=== PATIENT | female | born 1990 | race Asian ===

== ENCOUNTER → 2016-08-13 | Outpatient (CLI) | payer OTHER ==
[~2016-08-13] MED LIST: MTR600X PO; OXYC-57 PO; PRENTAB26 PO
[2016-08-13 18:49] LABS: URINE APPEARANCE TURBID (CLEAR); URINE BILIRUBIN NEG (NEG); URINE COLOR YELLOW; URINE NITRITE NEG (NEG); URINE SPECIFIC GRAVITY 1.017 (1.000-1.030); UROBILINOGEN NEG (NEG)
[2016-08-13 19:00] LABS: MANUAL MICROSCOPIC REQUIRED? NO; REVIEW REQ? NO
== END | disposition home or self-care (01) ==
LOC: C.LABSPEC 17:54
PROVIDERS: ATTEND Obstetrics & Gynecology
DX: O34.219 Maternal care for unspecified type scar from previous cesarean delivery (principal)

== ENCOUNTER → 2016-08-14 | Outpatient (CLI) | payer OTHER ==
[2016-08-14 11:08] LABS: COMPLETE YES; EOS % 0.5 %; HEMATOCRIT 37.8 % (37-47); IG% 0.2 %; LYMPH % 8.3 %; LYMPH ABS # 0.53 K/uL (1.2-3.4); MEAN CELL VOLUME 85.9 fL (80-100); MEAN CORPUSCULAR HGB CONC 34.9 g/dl (32-36); MEAN PLATELET VOLUME 9.3 fL (7.4-10.4); PLATELET COUNT 211 K/uL (130-400); WHITE BLOOD COUNT 6.39 K/uL (4.8-10.8)
[2016-08-16 14:54] LABS: CHLAMYDIA TRACH RNA*** NOT DETECTED (NOT DETECTED); GC (NEIS GONORRHOEAE)RNA** NOT DETECTED (NOT DETECTED)
== END | disposition home or self-care (01) ==
LOC: C.LAB1850 09:31
PROVIDERS: ATTEND Obstetrics & Gynecology
DX: O34.219 Maternal care for unspecified type scar from previous cesarean delivery (principal)

== ENCOUNTER → 2016-08-14 | Outpatient (CLI) | payer OTHER | END | disposition home or self-care (01) | LOC: C.PAPS 11:23 | PROVIDERS: ATTEND Obstetrics & Gynecology | DX: Z12.4 Encounter for screening for malignant neoplasm of cervix (principal) ==

== ENCOUNTER → 2016-10-12 | Outpatient (CLI) | payer OTHER ==
[2016-10-12 18:30] LABS: GTGD 50 Grams
== END | disposition home or self-care (01) ==
LOC: C.LAB1850 15:38
PROVIDERS: ATTEND Obstetrics & Gynecology
DX: Z34.92 Encounter for supervision of normal pregnancy, unspecified, second trimester (principal)

== ENCOUNTER 2016-11-24 23:48 | Outpatient (CLI) | payer OTHER ==
[~2016-11-24] VITALS: Ht 157.5 cm; Wt 53.1 kg
[2016-11-25] MEDS ORDERED: PRENTAB26 PO (00:07)
[2016-11-25 00:08] VITALS: Ht 157.5 cm; Wt 53.1 kg
--- NOTE | 2016-11-27 07:28 | EDITING REQUIRED CODING QUERY ---
DIAGNOSIS NEEDED To promote full compliance with coding requirements relating to patient care, physician participation is requested in all cases of newspaper photo editor uncertainty. Please assist us with the question(s) below: Coding Question: The patient received care in labor and delivery on 11/25/16 as noted within the record. Please document the diagnosis that is being addressed by the medication/treatment. Provider Response: DIAGNOSIS: Abdominal pain. Thank you for your assistance, Angelic Chow - Implementation Architect
== END 2016-11-25 00:25 | disposition home or self-care (01) ==
LOC: C.OPB 23:48 → C.LD 23:48 → C.OPB 11-25 00:25
PROVIDERS: ATTEND Obstetrics & Gynecology
DX: O99.89 Other specified diseases and conditions complicating pregnancy, childbirth and the puerperium (principal); R10.9 Unspecified abdominal pain; Z3A.25 25 weeks gestation of pregnancy

== ENCOUNTER → 2016-12-06 | Outpatient (CLI) | payer OTHER ==
[2016-12-06 13:05] LABS: GTGD 50 Grams
[2016-12-06 14:03] LABS: URINE APPEARANCE CLOUDY (CLEAR); URINE BILIRUBIN NEG (NEG); URINE COLOR DK YELLOW; URINE EPITHELIAL CELL AUTO >30 /lpf (0-5); URINE NITRITE NEG (NEG); URINE PH 6.5 (4.5-7.5); URINE SPECIFIC GRAVITY 1.024 (1.000-1.030); UROBILINOGEN NEG (NEG)
[2016-12-06 14:08] LABS: MANUAL MICROSCOPIC REQUIRED? NO; REVIEW REQ? NO
== END | disposition home or self-care (01) ==
LOC: C.LAB1850 10:02
PROVIDERS: ATTEND Obstetrics & Gynecology
DX: Z34.92 Encounter for supervision of normal pregnancy, unspecified, second trimester (principal)

== ENCOUNTER → 2017-02-07 | Outpatient (CLI) | payer OTHER | END | disposition home or self-care (01) | LOC: C.LABSPEC 17:33 | PROVIDERS: ATTEND Obstetrics & Gynecology | DX: Z34.83 Encounter for supervision of other normal pregnancy, third trimester (principal) ==

== ENCOUNTER 2017-03-07 07:30 | Inpatient (IN) | payer OTHER ==
--- NOTE | 2017-03-06 11:41 | PAT Medication Instructions ---
Service Date Mar 06, 2017. Current Home Medication List Multivit/Min/Iron/Fol Ac/Pren ( Vitamin), 1 TAB PO QPM Medication Instructions For Your Scheduled Surgery - Take the following medications as scheduled the night before surgery: Multivit/Min/Iron/Fol Ac/Pren ( Vitamin), 1 TAB PO QPM If you have any questions please call us at [phone] or [phone] or [phone]
[2017-03-06 12:00] LABS: COMPLETE YES; EOS % 0.5 %; HEMATOCRIT 39.9 % (37-47); IG% 0.6 %; LYMPH % 19.4 %; LYMPH ABS # 1.26 K/uL (1.2-3.4); MEAN CELL VOLUME 89.5 fL (80-100); MEAN CORPUSCULAR HEMOGLOBIN 30.3 pg (25-34); MEAN CORPUSCULAR HGB CONC 33.8 g/dl (32-36); MONO % 7.8 %; NEUT % 71.7 %; PLATELET COUNT 175 K/uL (130-400); RED BLOOD COUNT 4.46 M/uL (4.2-5.4); WHITE BLOOD COUNT 6.51 K/uL (4.8-10.8)
[~2017-03-07] VITALS: Ht 157.5 cm; Wt 66.0 kg
[~2017-03-07 07:30] MED LIST changes: -MTR600X PO; -OXYC-57 PO
--- NOTE | 2017-03-08 17:10 | HISTORY & PHYSICAL EXAMINATION ---
DATE OF ADMISSION: 03/11/2017 ADMIT DIAGNOSES: 1. Intrauterine at 40+ weeks. 2. History of previous section. HISTORY OF PRESENT ILLNESS: Aparna Mack is a 2, para 1-0-0-1 with an EDC of 03/06/2017 based on a last menstrual period consistent with a first trimester ultrasound, who presents for repeat section. She had hoped to , but did not labor. Her first was a section for failure to progress in [place] at 41 weeks to deliver a 7-pound baby. The for this patient has been uncomplicated. She notes good movement, no significant contractions, leaking or vaginal bleeding. PAST OB AND GARAGE DOOR INSTALLER HISTORY: As noted above. She denies history of abnormal Pap smears or sexually transmitted diseases. ALLERGIES: No known drug allergies. MEDICATIONS: vitamin. PAST MEDICAL HISTORY: Significant for mild asthma, for which she takes no medication. She has a history of migraine. She denies hypertension, heart disease, heart murmur, diabetes, kidney or liver problems. PAST SURGICAL HISTORY: Includes . SOCIAL HISTORY: The patient denies tobacco, alcohol or drug use. She lives with her spouse and daughter and in-laws. PHYSICAL EXAMINATION: GENERAL: This is a well-developed and well-nourished white female in no acute distress. VITAL SIGNS: Blood pressure 96/50. Weight 147.2 pounds. NECK: Supple without thyromegaly or lymphadenopathy. CHEST: Clear to auscultation bilaterally. CARDIOVASCULAR: Regular rate and rhythm without murmurs, gallops or rubs. BACK: Without costovertebral angle tenderness. EXTREMITIES: Benign. PELVIC: Deferred. LABORATORY DATA: Blood type O positive, antibody negative, rubella immune, RPR nonreactive, HIV negative, hepatitis B negative, chlamydia and gonorrhea cultures negative, Glucola x2 negative, and GBS negative. ASSESSMENT: Aparna Mack is a 2, para 1-0-0-1 at 40+weeks, who presents for repeat section. The risks of the procedure were discussed with the patient including the risks of anesthesia, bleeding requiring transfusion, infection and poor wound healing, damage to surrounding structures including bowel, bladder, vessels, nerves and ureters with need for further surgery, hospitalization or intervention. The other risks of surgery including heart attack, blood clot, stroke and were discussed with the patient. Consent was reviewed and signed. Surgery is planned for March 11. MTDD
[2017-03-11] VITALS (13 sets, daily range): BP systolic 104–117; BP diastolic 64–74; PULSE 83–94; TEMP 36.5–36.9; O2SAT 96–98; Ht 157.5 cm; Wt 66.0 kg
[2017-03-11] MEDS ORDERED: CITRIC ACID/SODIUM CITRATE 15 ML UDC PO ONE (05:30)
[2017-03-11] MEDS: LACTATED RINGER'S 1000ML 1,000 ML IV SCH ×2 (05:47→06:55)
[2017-03-11 05:50] LABS: BASO % 0.1 %; BASO ABS # 0.01 K/uL (0-0.2); COMPLETE YES; EOS % 0.3 %; HEMATOCRIT 38.2 % (37-47); IG% 0.4 %; LYMPH % 20.9 %; LYMPH ABS # 1.48 K/uL (1.2-3.4); MEAN CELL VOLUME 88.8 fL (80-100); MEAN CORPUSCULAR HGB CONC 33.8 g/dl (32-36); MEAN PLATELET VOLUME 9.3 fL (7.4-10.4); MONO % 6.5 %; NEUT % 71.8 %; PLATELET COUNT 172 K/uL (130-400); WHITE BLOOD COUNT 7.07 K/uL (4.8-10.8)
[2017-03-11] MEDS ORDERED: CEFAZOLIN 2000 MG/60 ML D5W 50 ML IV SCH (06:00)
[2017-03-11] MEDS ORDERED: MoRPHine SULFATE PF 1 MG/ML 10 ML AMP/VIAL ONE (07:19)
[2017-03-11] MEDS ORDERED: FENTANYL CITRATE INJ 50 MCG/1 ML 2 ML VIAL ONE (07:19)
--- NOTE | 2017-03-11 07:19 | History & Physical Bridge Note ---
H&P Re-Evaluation Bridge Note: I have examined the patient, reviewed the History & Physical and in the interval since the performance of the History & Physical I have noted the following changes of clinical significance: No changes noted
[2017-03-11 07:24] LABS: URINE APPEARANCE CLOUDY (CLEAR); URINE BILIRUBIN NEG (NEG); URINE COLOR YELLOW; URINE EPITHELIAL CELL AUTO >30 /lpf (0-5); URINE NITRITE NEG (NEG); URINE PH 7.5 (4.5-7.5); URINE SPECIFIC GRAVITY 1.023 (1.000-1.030); UROBILINOGEN NEG (NEG)
[2017-03-11 07:31] LABS: MANUAL MICROSCOPIC REQUIRED? NO; REVIEW REQ? YES
[2017-03-11] MEDS ORDERED: OXYTOCIN INJ 10 UNITS/ML VIAL ONE ×4 (07:49→08:25)
[2017-03-11] MEDS ORDERED: ONDANSETRON INJ 2 MG/ML 2 ML VIAL ONE (07:49)
[2017-03-11] MEDS ORDERED: KETOROLAC TROMETHAMINE 30 MG/ML VIAL ONE (07:49)
[2017-03-11] MEDS ORDERED: LANOLIN OINT EXT PRN ×2 (08:15)
[2017-03-11] MEDS ORDERED: NALOXONE HCL INJ 1 MG in SODIUM CHLORIDE 0.9% 1000ML 1,000 ML IV PRN (08:36)
[2017-03-11] MEDS ORDERED: NALOXONE HCL INJ 0.08 MG in SYRINGE 1.8 ML IV PRN (08:36)
[2017-03-11] MEDS ORDERED: SODIUM CHLORIDE 0.9% 1000ML 1,000 ML IV PRN (08:36)
[2017-03-11] MEDS ORDERED: LACTATED RINGER'S 1000ML 500 ML IV PRN (08:36)
[2017-03-11] MEDS ORDERED: EpHEDrine SULFATE INJ 50 MG/ML AMP IV PRN (08:45)
[2017-03-11] MEDS ORDERED: PROMETHAZINE HCL INJ 6.25 MG in SODIUM CHLORIDE 0.9% 50ML 50 ML IV PRN (08:45)
[2017-03-11] MEDS ORDERED: NALOXONE HCL 0.4 MG/1 ML VIAL/CARP IV PRN (08:45)
[2017-03-11] MEDS ORDERED: MoRPHine SULFATE 2 MG/ML CARP IV PRN (08:45)
[2017-03-11] MEDS ORDERED: ONDANSETRON INJ 2 MG/ML 2 ML VIAL IV PRN (08:45)
[2017-03-11] MEDS ORDERED: NO NARCOTICS OR SEDATIVES SCH (08:45)
[2017-03-11] MEDS ORDERED: DiphenhydrAMINE HCL 50 MG/ML VIAL IV PRN (08:45)
[2017-03-11] MEDS ORDERED: NALBUPHINE HCL INJ 10 MG/ML AMP IV PRN (08:45)
[2017-03-11] MEDS ORDERED: KETOROLAC TROMETHAMINE 30 MG/ML VIAL IV. PRN (08:45)
[2017-03-11] MEDS ORDERED: MoRPHine SULFATE PF 1 MG/ML 10 ML AMP/VIAL EPI PRN (08:45)
--- NOTE | 2017-03-11 09:47 | [facility] Post Operative Brief Note ---
Immediate Operative Summary Operative Date Mar 11, 2017. Pre-Operative Diagnosis 1. IUP at 40 weeks 5 days 2. History of previous section Post-Operative Diagnosis same Procedure(s) Performed Repeat caesarean section with the of a live female child at [address]. Surgeon Dr[address] Clemons Bagman/Woman Surgeon(s) Dr. Fernanda Quinteros, PGY 1, Mukund Lizama, MS3 Estimated Blood Loss 500ml Findings viable female in cephalic presentation, nuchal cord x 2, nl utx/tubes/ovs , apgars 8/9, weight pending. Fluids (cc crystalloids) 2000cc Specimens A; Placenta-hold B; cord blood Drains horner Anesthesia spinal Complication(s) None Disposition L&D
--- NOTE | 2017-03-11 09:56 | OPERATIVE REPORT ---
DATE OF OPERATION: 03/11/2017 PREOPERATIVE DIAGNOSES: 1. Intrauterine at 40-5/7 weeks. 2. History of previous section. POSTOPERATIVE DIAGNOSES: Same. PROCEDURE: Repeat lower transverse section. SURGEON: Aubree Clemons MD FONDANT PUFF MAKER: Fernanda Quinteros, PGY-1 and Jordi Platt MS-3. ANESTHESIA: Spinal. ESTIMATED BLOOD LOSS: 500 mL. FLUIDS: 2 liters. URINE OUTPUT: 100 mL of clear yellow urine, drained from the bladder at the end of the procedures. INDICATIONS: The patient is a 2, para 1-0-0-1 at 40-5/7 weeks who presents for default repeat section. She had hoped to be back, but never labor. FINDINGS: Viable female infant in cephalic presentation, Apgars 8 and 9, weight pending. Uterus, tubes, and ovaries were normal bilaterally. COMPLICATIONS: None. DRAINS: Suazo. DISPOSITION: To recovery room in stable condition. PROCEDURE: The patient was taken to the operating room where she was identified verbally and by bracelet. She was seated on the operating table where spinal anesthetic was placed. She was then placed in dorsal supine position in a leftward tilt. A Suazo catheter was placed sterilely and she was prepped and draped in normal sterile fashion. Anesthetic was tested and found to be adequate. Time-out was held, identifying correct patient, procedure and positioning. A Pfannenstiel skin incision was made with a knife and taken down to the underlying layer of fascia with the knife. Bleeding was attended to with Bovie electrocautery. The fascia was incised with the knife and taken out laterally with scissors. Superior edge of the fascial incision was grasped, elevated and the underlying layer of rectus muscle was taken off bluntly and with scissors. In a similar fashion, the inferior edge of the fascial incision was grasped, elevated and the underlying layer of rectus muscle was taken off bluntly and with scissors. The muscles were bluntly in the midline. The peritoneum was entered bluntly. The incision was stretched. The bladder flap was created by grasping the vesicouterine peritoneum with a snap incising with scissors and taken out laterally with scissors. The bladder flap was created digitally. The bladder blade was replaced. Hysterotomy was scored with the knife. The incision was then opened with the dog food shredder operator's fingers and amniotomy was performed for copious amounts of clear fluid. I attempted to deliver the head through the hysterotomy incision but it was tight, so a vacuum was called for. The vacuum was placed x1 and without pop offs, the head was delivered through the incision. The nose and mouth were bulb suctioned, the double nuchal cord was reduced and the rest of the was then delivered without difficulty. The nose and mouth were again bulb suctioned. The cord was clamped and cut, and the was handed off to awaiting pediatricians for drying and attention. Cord blood and segment were obtained. Placenta was manually extracted. The uterus was exteriorized and cleared of all clot and debris with moistened laparotomy sponges. Hysterotomy incision was repaired in 2 layers of 0 Vicryl, the first in a running locked layer and the second in an imbricating layer. [id number] suture in the midline with need for hemostasis. The posterior cul-de-sac was irrigated and cleared of all clot and debris. The hysterotomy incision was again inspected and found to be hemostatic. The uterus was replaced into the abdomen. The incision was again inspected, some oozing edges were attended to with Bovie electrocautery and the incision was then found to be hemostatic. The muscles were reapproximated with several interrupted sutures in the midline of 0 Vicryl. The fascia was then reapproximated with 0 Vicryl meeting in the midline. The subcuticular tissue was copiously irrigated and found to be hemostatic. The skin was closed with subcuticular stitch of 4-0 Vicryl. All sponge, lap and needle counts were correct x2. The patient tolerated the procedure well and was taken to recovery room in stable condition. I attest to the content of the Intraoperative Record and any orders documented therein. Any exception s are noted below.
[2017-03-11] MEDS ORDERED: OXYTOCIN INJ 20 UNITS in LACTATED RINGER'S 1000ML 1,000 ML IV SCH (10:30)
[2017-03-11] MEDS ORDERED: DIPHTHERIA/TETANUS/PERTUSSIS 0.5 ML SYR/VIAL IM. ONE (10:30)
[2017-03-11] MEDS: MEPERIDINE HCL 25 MG/ML CARP IV PRN ×2 (11:05→11:25)
[2017-03-11] MEDS: SIMETHICONE 80 MG CHEW PO SCH ×3 (12:00→20:39)
--- NOTE | 2017-03-11 12:10 | Anesthesiology Progress Note ---
Anesthesia Post Op Note Date & Time Mar 11, 2017 at 12:09 Vital Signs Pain Intensity: 2.0 Notes Mental Status: alert / awake / arousable, participated in evaluation Pt Amnestic to Procedure: Yes Nausea / Vomiting: adequately controlled Pain: adequately controlled Airway Patency, RR, SpO2: stable & adequate BP & HR: stable & adequate Hydration State: stable & adequate Neuraxial Anesthesia: was administered, sensory block resolved Anesthetic Complications: no major complications apparent
[2017-03-11] MEDS ORDERED: LACTATED RINGER'S 1000ML 1,000 ML IV SCH (18:30)
[2017-03-11] MEDS: DOCUSATE SODIUM 100 MG CAP PO SCH (20:39)
[2017-03-12] MEDS ORDERED: DiphenhydrAMINE HCL 50 MG/ML VIAL IV PRN (02:00)
[2017-03-12] MEDS ORDERED: OXYCODONE/ACETAMINOPHEN 5-325 TAB PO PRN (02:00)
[2017-03-12] MEDS ORDERED: KETOROLAC TROMETHAMINE 30 MG/ML VIAL IV. PRN (02:00)
[2017-03-12] MEDS ORDERED: DC INTRASPINAL MORPHINE SCH (02:00)
[2017-03-12 04:25] VITALS: BP 103/67; PULSE 93; TEMP 36.8; O2SAT 96
--- NOTE | 2017-03-12 06:08 | OB/GYN Progress Note ---
PAPER LATCHER Progress Note Date of Service Mar 12, 2017. Subjective conversation w/ patient, physical exam, chart review, lab review Ambulation: limited ambulation Passing Gas: Yes Diet Tolerance: Clear Liquids Lochia: Small Feeding Type: Breast Feeding Pain: mild pain Review of Systems Constitutional: No fever Respiratory: No shortness of breath Cardiac: No chest pain Abdomen: No nausea, No vomiting Female : No dysuria Objective Vital Signs Date Time Temp Pulse Resp B/P (MAP) Pulse Ox O2 Delivery O2 Flow Rate FiO2 03/12/17 04:25 36.8 93 16 103/67 (79) 96 Room Air 03/11/17 23:30 96 Room Air 03/11/17 23:30 16 96 03/11/17 23:30 36.8 93 16 117/70 (86) 96 Room Air 03/11/17 20:30 18 96 03/11/17 19:30 36.9 94 18 104/64 (77) 96 Room Air 03/11/17 19:30 18 96 03/11/17 18:30 18 96 03/11/17 17:30 18 96 03/11/17 16:30 18 98 03/11/17 15:30 36.8 91 18 111/68 (82) 96 Room Air 03/11/17 15:30 96 Room Air 03/11/17 15:30 18 96 03/11/17 15:00 20 97 03/11/17 13:50 20 96 03/11/17 13:00 20 97 03/11/17 13:00 36.6 87 20 106/70 (82) 97 Room Air 03/11/17 12:30 36.6 83 20 115/73 (87) 96 Room Air 03/11/17 11:50 18 96 03/11/17 11:50 36.5 83 18 117/74 (88) 96 Room Air 03/11/17 11:30 20 97 03/11/17 11:30 97 Room Air 03/11/17 11:30 97 Physical Exam General Appearance: WELL-APPEARING Respiratory/Chest: lungs clear, normal breath sounds, no respiratory distress Cardiovascular: regular rate, rhythm Abdomen: normal bowel sounds, non tender, soft Fundus: Firm, Relation to Umbilicus (2 below U) Incision Description: Clean, Dry & Intact Extremities: non-tender, + pedal edema (1+) Laboratory Results Last 24 Hours Test 03/11/17 06:59 03/12/17 05:52 Urine Color YELLOW Urine Appearance CLOUDY Urine pH 7.5 Urine Specific [place] 1.023 Urine Protein NEG Urine Glucose (UA) NEG Urine Ketones 1+ Urine Occult Blood NEG Urine Nitrite NEG Urine Bilirubin NEG Urine Urobilinogen NEG Urine Leukocyte Esterase SMALL Urine WBC (Auto) 10-30 /hpf Urine RBC (Auto) 0-4 /hpf Urine Hyaline Casts (Auto) 1-5 /lpf Urine Epithelial Cells (Auto) >30 /lpf Urine Bacteria (Auto) NEG Urine Pathogenic Casts /lpf Assessment and Plan Post-Op Day Number: 1 Continue Routine Care: A/P: This is a 27 y/o female, , POD#1 s/p repeat . She is ambulating and clinically stable. Plan: - Vitals signs are reviewed and WNL (Tmax 36.9 ) - Last Hgb is 111.1 (03/12). - Blood type O+, GBS neg, Rubella Immune - Routine post operative care - Encourage ambulation, monitor and control pain with medication as needed, continue with regular diet as tolerated and monitor lochia - Stool softeners and sitz bath recommended - Encourage breast feeding and educate about breast feeding Resident Physician Supervision Note: I interviewed and examined the patient. Discussed with Dr. Quinteros and agree with findings and plan as documented in the note. Any exceptions or clarifications are listed here: Doing well, routine PPD 1 care. Documented By: Aubree Clemons Resident Involvement: Resident Care Provided Care Provided: OB Delivery
[2017-03-12 06:21] LABS: COMPLETE YES; EOS % 0.1 %; HEMATOCRIT 33.9 % (37-47); IG% 0.3 %; LYMPH % 11.7 %; LYMPH ABS # 0.83 K/uL (1.2-3.4); MEAN CELL VOLUME 89.9 fL (80-100); MEAN CORPUSCULAR HEMOGLOBIN 29.4 pg (25-34); MEAN CORPUSCULAR HGB CONC 32.7 g/dl (32-36); MEAN PLATELET VOLUME 8.7 fL (7.4-10.4); MONO % 7.9 %; PLATELET COUNT 135 K/uL (130-400); RED BLOOD COUNT 3.77 M/uL (4.2-5.4)
--- NOTE | 2017-03-12 06:26 | Discharge Instructions ---
Discharge Instructions Date of Service Mar 12, 2017. Admission Reason for Admission: Previous Section Discharge Discharge Diagnosis / Problem: after delivery Discharge Goals Goal(s): Routine recovery after delivery Medications Continue Dispensed Medications: supercream, dermaplast, tucks, lansinoh Activity Recommendations Activity Limitations: per Instructions/Follow-up section . Instructions / Follow-Up Instructions / Follow-Up ACTIVITY RECOMMENDATIONS: * Gradual return to full activity over the next 2-3 weeks. * No lifting - nothing heavier than baby over the next 2-3 weeks. * Do not engage in vigorous exercise, sexual activity or sports until cleared by your physician. * Do not drive or operate any motorized equipment until cleared by your physician. * You may shower/bathe daily. MEDICATIONS: For discomfort or pain, you may use Acetaminophen (Tylenol), Ibuprofen (Advil), or Naproxen (Aleve) following the package directions. For constipation you may use Colace following the package directions. BREAST CARE: If you are not breast feeding: * Wear a supportive bra 24 hours a day for one to two weeks. * Avoid stimulating your breasts and nipples as much as possible during the first few weeks after delivery. * When taking a shower, have the warm water hit your back, not breasts. * When your breasts feel full, apply ice packs. Usually three to four times a day helps ease the discomfort. * Take a mild pain medication (Tylenol / Motrin) when you are uncomfortable. If breast feeding: * Use breast milk to lubricate nipples. Lansinoh cream may be used for sore nipples. You do not need to remove cream prior to breast feeding. If using a different brand of cream, check the label for directions regarding removal of cream prior to nursing. * Wear a supportive bra. * If having problems with breasts or breast feeding, call a planning consultant or your health care provider. SPECIAL CARE INSTRUCTIONS: When you are discharged from the hospital, it is important for you to follow the instructions listed below: * During the first week at home, you should be able to care for yourself and your baby. In addition, the usual light household activities are encouraged. * Limit your activities to the way you feel. Do not try to clean the house or move furniture. Be sensible. * If you actively engage in sports and have done so up until the time of your delivery, you may resume these activities as soon as you feel able. This may take up to one month or even longer. Use good judgment. * Continue to take your vitamins for at least six weeks after the of your baby. * Your diet need not be limited unless you were on a special diet before your delivery. Breast-feeding mothers need around 2500 calories per day and at least 64-80 ounces of fluid per day (8 to 10 glasses). * You should eat foods from the four major food groups. Crash diets or fad diets are to be avoided. Eating lean meats, fresh fruits and vegetables, low-fat dairy products, high fiber foods and a regular exercise program, will help you get back to your pre- weight without putting your health at risk. * Constipation is sometimes a problem after delivery. Take a mild laxative as needed. If breast feeding, Milk of Magnesia is acceptable to use. You may use a suppository or Fleets enema. * A daily shower or tub bath is suggested. Wash incision daily with warm soapy water and pat dry. It doesn't need to be covered unless drainage is present. * A bloody vaginal discharge will usually continue until around four weeks . A small amount of bleeding may continue for as long as six weeks. Vaginal discharge changes from the bright red bleeding after delivery to pink then brownish and finally yellowish-pink before becoming white and disappearing. * Bleeding may increase with activity. Your first period may come in 4-8 weeks. If you are breast feeding, your period may be delayed even longer. * [place] (sex) can begin whenever both you and your partner feel comfortable and do not have any form of genital infection. It is recommended that you wait at least six weeks for internal and external healing to occur. If you have questions, please talk to your health care practitioner. A condom should be used to prevent infection and . * Foreplay, gentle intercourse and lubrication is very important the first several times to prevent pain. A water-based lubricant such as K-Y jelly or Astroglide may be used. * If you have RH negative blood and your baby is RH positive, you will receive RHOGAM by injection prior to discharge. The nurse will give you a card to keep with you that has the date and place that you received RHOGAM after delivery. * During your care, you had a Rubella screen done to check for the presence of rubella antibodies in your blood. If your test was negative, you will receive a Rubella vaccine prior to discharge. This vaccine may cause a fever, soreness at the injection site and flu-like symptoms. If these symptoms persist, notify your health care practitioner. is not advised for one month after a Rubella vaccine. * Verbalizes understanding of car seat law as reviewed with patient nursing. * Car Seat hand-out given and reviewed with patient by nursing. * Shaken baby information reviewed with patient by nursing. Call you doctor if: * Heavy bleeding (saturating several pads an hour) or passing clots the size of your fist. * A fever >101 degrees F (38.3 degrees C) on two occasions four hours apart and /or chills. * Unusual pain in the pelvic or vaginal areas. * Call the doctor for any increased redness, drainage or swelling around the incision and any pain unrelieved by prescribed pain medication. * "Baby Blues" lasting longer than two weeks. If you have any questions or concerns, call your health care practitioner at . FOLLOW UP VISIT: * Please call the office at to schedule a 6 week examination. It is important you keep this appointment. It is important for you to make arrangements for either yearly or twice yearly check-ups thereafter. Current Hospital Diet Patient's current hospital diet: Regular OB Diet Discharge Diet Recommended Diet: Regular Diet Procedures Procedures Performed: Repeat caesarean section with the of a live female child at 0754. Pending Studies Studies pending at discharge: no Medical Emergencies . Who to Call and When: Medical Emergencies: If at any time you feel your situation is an emergency, please call [phone] immediately. . Non-Emergent Contact Non-Emergency issues call your: Credit Controller . . "Provider Documentation" section prepared by Fernanda Quinteros. . VTE Core Measure Inpt VTE Proph given/why not?: SCD's
[2017-03-12 07:30] VITALS: BP 104/68; PULSE 87; TEMP 36.7; O2SAT 96
[2017-03-12] MEDS: SIMETHICONE 80 MG CHEW PO SCH ×4 (07:45→20:13)
[2017-03-12] MEDS: DOCUSATE SODIUM 100 MG CAP PO SCH ×2 (07:45→20:13)
[2017-03-12] MEDS: PRENATAL VITAMIN TAB PO SCH (07:45)
[2017-03-12] MEDS: OXYCODONE/ACETAMINOPHEN 5-325 TAB PO PRN ×3 (07:46→18:02)
[2017-03-12] MEDS: IBUPROFEN 600 MG TAB PO PRN ×4 (07:46→22:25)
[2017-03-12 15:45] VITALS: BP 109/73; PULSE 89; TEMP 36.7; O2SAT 97
[2017-03-12 23:15] VITALS: BP 104/74; PULSE 85; TEMP 36.7
--- NOTE | 2017-03-13 06:14 | OB/GYN Progress Note ---
DIE CUTTER OPERATOR Progress Note Date of Service Mar 13, 2017. Subjective conversation w/ patient, physical exam, chart review, lab review Ambulation: ambulating normally Voiding: no voiding problems Passing Gas: Yes Diet Tolerance: Regular Diet Lochia: Small Feeding Type: Breast Feeding (supplementing with formula) Pain: mild pain Review of Systems Constitutional: No fever Respiratory: No shortness of breath Cardiac: No chest pain Abdomen: No nausea, No vomiting Female : No dysuria Objective Vital Signs Date Time Temp Pulse Resp B/P (MAP) Pulse Ox O2 Delivery O2 Flow Rate FiO2 03/12/17 23:15 36.7 85 16 104/74 (84) Room Air 03/12/17 23:15 Room Air 03/12/17 15:45 97 Room Air 03/12/17 15:45 36.7 89 16 109/73 (85) 97 Room Air 03/12/17 07:30 36.7 87 16 104/68 (80) 96 Room Air 03/12/17 07:30 96 Room Air Physical Exam General Appearance: WELL-APPEARING Respiratory/Chest: lungs clear, normal breath sounds, no respiratory distress Cardiovascular: regular rate, rhythm Abdomen: normal bowel sounds, non tender, soft Fundus: Firm, Relation to Umbilicus (2 below U) Incision Description: Clean, Dry & Intact Extremities: non-tender, + pedal edema (1+ ) Laboratory Results Last 24 Hours Test 03/13/17 06:00 Assessment and Plan Post-Op Day Number: 2 Continue Routine Care: Resident Physician Supervision Note: I was present with Dr. Quinteros during the history and exam. I discussed the case with the resident and agree with the findings and plan as documented in the note. Any exceptions or clarifications are listed here: [None] Documented By: Stephanie Leal A/P: This is a 27 y/o female, , POD#2 s/p repeat . She is ambulating and clinically stable. Plan: - Vitals signs are reviewed and WNL (Tmax 36.9 ) - Last Hgb is 11.1 (03/12). This AM pending - Blood type O+, GBS neg, Rubella Immune - Routine post operative care - Encourage ambulation, monitor and control pain with medication as needed, continue with regular diet as tolerated and monitor lochia - Stool softeners and sitz bath recommended - Encourage breast feeding and educate about breast feeding Resident Involvement: Resident Care Provided Care Provided: OB Delivery
[2017-03-13 06:46] LABS: HEMATOCRIT 32.7 % (37-47)
[2017-03-13 08:00] VITALS: BP 114/74; PULSE 84; TEMP 36.2; O2SAT 98
[2017-03-13] MEDS: DOCUSATE SODIUM 100 MG CAP PO SCH ×2 (08:14→19:59)
[2017-03-13] MEDS: SIMETHICONE 80 MG CHEW PO SCH ×4 (08:14→19:59)
[2017-03-13] MEDS: PRENATAL VITAMIN TAB PO SCH (08:15)
[2017-03-13] MEDS: IBUPROFEN 600 MG TAB PO PRN ×2 (10:33→18:38)
[2017-03-13] MEDS: OXYCODONE/ACETAMINOPHEN 5-325 TAB PO PRN ×2 (10:34→18:37)
[2017-03-13 15:30] VITALS: BP 112/76; PULSE 84; TEMP 36.6
[2017-03-14] VITALS: BP 132/80; PULSE 76; TEMP 36.6; O2SAT 97
--- NOTE | 2017-03-14 06:16 | OB/GYN Progress Note ---
PROFESSOR OF PRACTICE Progress Note Date of Service Mar 14, 2017. Subjective conversation w/ patient, physical exam, chart review, lab review Ambulation: ambulating normally Voiding: no voiding problems Passing Gas: Yes Diet Tolerance: Regular Diet Lochia: Small Feeding Type: Breast Feeding (and bottle feeding) Pain: mild pain Review of Systems Constitutional: No fever Respiratory: No shortness of breath Cardiac: No chest pain Abdomen: No nausea, No vomiting Female : No dysuria Objective Vital Signs Date Time Temp Pulse Resp B/P (MAP) Pulse Ox O2 Delivery O2 Flow Rate FiO2 03/14/17 00:00 97 Room Air 03/14/17 00:00 36.6 76 16 132/80 (97) 97 Room Air 03/13/17 15:30 36.6 84 20 112/76 (88) Room Air 03/13/17 15:30 Room Air 03/13/17 08:00 98 Room Air 03/13/17 08:00 36.2 84 16 114/74 (87) 98 Room Air Physical Exam General Appearance: WELL-APPEARING Respiratory/Chest: lungs clear, normal breath sounds, no respiratory distress Cardiovascular: regular rate, rhythm Abdomen: normal bowel sounds, non tender, soft Fundus: Firm, Relation to Umbilicus (2 below U) Incision Description: Clean, Dry & Intact Extremities: non-tender, no pedal edema Laboratory Results Last 24 Hours Test 03/13/17 06:29 Hemoglobin 10.9 g/dL Hematocrit 32.7 % Assessment and Plan Post-Op Day Number: 3 Continue Routine Care: A/P: This is a 27 y/o female, , POD#2 s/p repeat . She is ambulating and clinically stable. Plan: - Vitals signs are reviewed and WNL (Tmax 36.9 ) - Last Hgb is 10.9 (03/13). This AM pending - Blood type O+, GBS neg, Rubella Immune - No signs of depression. - Routine post operative care - Discussed resting, feeding, pain control, mastitis, control, follow up in 6 weeks and reasons to call sooner, if necessary. - Continue with pain medication as needed, and continue vitamins. - Encourage breast feeding and educate about breast feeding - Patient understands and keen for home. - Plan to discharge home Resident Physician Supervision Note: I was present with Dr. Noor during the history and exam. I discussed the case with the resident and agree with the findings and plan as documented in the note. Any exceptions or clarifications are listed here: Doing well. Ready for d /c. discussed pain meds. instructions reviewed. f/u 6 wks pp Documented By: Vero Mascorro Resident Involvement: Resident Care Provided Care Provided: OB Delivery
[2017-03-14 08:00] VITALS: BP 117/81; PULSE 69; TEMP 36.5
[2017-03-14] MEDS: PRENATAL VITAMIN TAB PO SCH (08:02)
[2017-03-14] MEDS: DOCUSATE SODIUM 100 MG CAP PO SCH (08:02)
[2017-03-14] MEDS: SIMETHICONE 80 MG CHEW PO SCH ×2 (08:03→13:44)
[2017-03-14] MEDS: IBUPROFEN 600 MG TAB PO PRN ×2 (08:04→13:45)
[2017-03-14] MEDS: OXYCODONE/ACETAMINOPHEN 5-325 TAB PO PRN ×2 (08:05→13:45)
[2017-03-14] MEDS ORDERED: MTR600X PO (08:22)
[2017-03-14] MEDS ORDERED: OXYC-57 PO (08:22)
[2017-03-14 14:32] VITALS: BP_DIAS 81; PULSE 69; TEMP 36.5
--- NOTE | 2017-03-20 11:24 | DISCHARGE SUMMARY ---
ADMIT DIAGNOSES: 1. Intrauterine at 40 and plus weeks. 2. History of previous section. DISCHARGE DIAGNOSES: Same. PROCEDURES: Repeat lower transverse section. HISTORY OF PRESENT ILLNESS: Aparna Mack is a 2, para 1-0-0-1 with an EDC of 03/06/2017 based on last menstrual period, consistent with a first trimester ultrasound, who presents for repeat section. She had hoped to the , but did not labor. Her first was a section for failure to progress in [place] at 41 weeks to deliver a 7-pound baby. The for this patient has been uncomplicated. She notes good movement. No significant contractions, leaking or vaginal bleeding. For the rest of the detailed history and physical, please see her dictated history and physical. ASSESSMENT: The patient is a 2, para 1 at 40 weeks, who presents for repeat section. HOSPITAL COURSE: The patient was admitted and she underwent a repeat lower transverse section without difficulty to deliver a viable female child with a nuchal cord x2, Apgars of 8 and 9. Normal uterus, tubes, and ovaries were noted bilaterally. The patient's postoperative course was uncomplicated. She tolerated a regular diet, passed gas, ambulated without difficulty, was breast feeding and had her pain well controlled on oral pain medications. She was discharged home on postoperative day #3. Her discharge hemoglobin was 10.9. She was discharged home with routine pain medications and to return in 6 weeks for postoperative visit.
== END 2017-03-14 14:32 | disposition home or self-care (01) | DRG 766 ==
LOC: EDSTATUS 07:30 → C.LD 03-11 05:19 → C.OBG 03-11 11:15
PROVIDERS: ADMIT Obstetrics & Gynecology; ATTEND Obstetrics & Gynecology
PROC: 10D00Z1 Extraction of Products of Conception, Low, Open Approach (ICD-10-PCS; principal; 2017-03-11 07:30)
DX: O48.0 Post-term pregnancy (principal); Z37.0 Single live birth; O34.219 Maternal care for unspecified type scar from previous cesarean delivery; N85.8 Other specified noninflammatory disorders of uterus; O99.52 Diseases of the respiratory system complicating childbirth; J45.909 Unspecified asthma, uncomplicated; O69.81X0 Labor and delivery complicated by cord around neck, without compression, not applicable or unspecified; Z3A.40 40 weeks gestation of pregnancy

== ENCOUNTER → 2017-04-09 | Outpatient (CLI) | payer OTHER ==
[~2017-04-09] MED LIST changes: +MTR600X PO; +OXYC-57 PO
[2017-04-09 16:33] LABS: URINE APPEARANCE CLEAR (CLEAR); URINE BILIRUBIN NEG (NEG); URINE COLOR YELLOW; URINE NITRITE NEG (NEG); URINE PH 6.5 (4.5-7.5); URINE SPECIFIC GRAVITY 1.009 (1.000-1.030); UROBILINOGEN NEG (NEG)
[2017-04-09 16:36] LABS: MANUAL MICROSCOPIC REQUIRED? NO; REVIEW REQ? YES
[2017-04-09 16:59] LABS: URINE EPITHELIAL CELL AUTO >30 /lpf (0-5)
== END | disposition home or self-care (01) ==
LOC: C.LAB1850 15:29
PROVIDERS: ATTEND Obstetrics & Gynecology
DX: R30.9 Painful micturition, unspecified (principal)